=== PATIENT | female | born 1935 | race Caucasian/White ===

== ENCOUNTER 2019-07-20 09:27 | Day surgery (SDC) | payer MEDICARE, OTHER ==
[~2019-07-20] VITALS: Ht 165.1 cm; Wt 83.1 kg
[~2019-07-20 09:27] MED LIST: ALBU90OI INH; AMOX500 PO; ATEN100; ATEN25 PO; ATEN50 PO; ATENOLOL; ATOR20 PO; BENICAR HCT; BENZ100A PO; Benicar Hct 201 EACH PO; CALMAGZIN PO; CIPR500 PO; EYE OMEGA ADVA1 EACH; FISH OIL PO; Fish Oil300 MG; HYDACE5 PO; Hair, Skin & N1 EACH PO; LEVOTHYROXIN; LEVSOD100 PO; LEVSOD50 PO; LIPITOR; MELO7.5 PO; METF500C PO; METFORMIN; Multiple Vitam1 EAC1; OLME20-12. PO; PRESERVISION A1 EACH PO; PROM25 PO; Prilosec20 MG PO; RANI150 PO; RANITIDINE; RXPROM25 PO; TAMS.4ER PO; Vitamin D400 UNI2 PO; [UNRECOGNIZED DRUG - OTHER]
--- NOTE | 2019-07-20 10:09 | NUR ---
Surgical site prepped with 2% Chlorhexidine cloth wipe. History, Chart, Medications and Allergies reviewed before start of procedure. Lungs clear T/O to Auscultation. Patient confirms NPO status and agrees with scheduled surgery. Pre-Op teaching done. Pt verbalizes understanding. Patient reports completing Chlorhexadine shower X2 prior to admission to hospital.
--- NOTE | 2019-07-20 13:30 | NUR ---
pt arrived to unit via own bed, a/0 x 4, pleasant/cooperative, [employer] [place], no n/v, absent sensation/movement r/t spinal anesthesia. post op vs commenced and stable. pt provided with orientation to room/call light, bed in lowest position, bed rails up x 2, bed in lowest position.
--- NOTE | 2019-07-20 16:25 | NUR ---
ASSUMED CARE OF PT FROM MOIRA Leon RN PT DENIES PAIN AT THIS TIME. ABLE TO MOVE FEET AND SLIGHTLY LIFT R LEG. CALL LIGHT IN REACH.
--- NOTE | 2019-07-20 18:41 | NUR ---
SUMMARY NO ACUTE CHANGES SINCE ASSUMING CARE OF PT. WORKED W/THERAPY. NOW SITTING UP IN CHAIR, FINISHING DINNER. VOIDED. DENIES PAIN. ADMINISTERED MEDS PER ORDERS. CALL LIGHT IN REACH.
[2019-07-21 05:15] LABS: BASOPHILS ABSOLUTE AUTO 0.02 K/mm3 (0.00-0.23); BASOPHILS PERCENT AUTO 0 % (0-2); EOSINOPHILS PERCENT AUTO 0 % (0-6); Hematocrit 32.5 % (33.0-51.0); Hemoglobin 10.8 g/dL (11.5-16.0); IMMATURE GRAN ABSOLUTE AUTO 0.06 K/mm3 (0.00-0.10); IMMATURE GRAN PERCENT AUTO 0 % (0-1); LYMPHOCYTES ABSOLUTE AUTO 0.86 K/mm3 (0.84-5.20); LYMPHOCYTES PERCENT AUTO 6 % (21-46); MONOCYTES ABSOLUTE AUTO 0.66 K/mm3 (0.16-1.47); MONOCYTES PERCENT AUTO 5 % (4-13); Mean Corpuscular HGB 29.3 pg (26.0-34.0); Mean Corpuscular HGB Conc 33.2 g/dL (31.5-36.5); Mean Corpuscular Volume 88 fL (80-100); Mean Platelet Volume 12.3 fL (9.1-12.4); NEUTROPHILS ABSOLUTE AUTO 11.82 K/mm3 (1.96-9.15); NEUTROPHILS PERCENT AUTO 88 % (41-73); Platelet Count 192 K/mm3 (150-400); RDW Coefficient Variation 13.4 % (11.7-14.2); RDW Standard Deviation 43.6 fL (35.1-46.3); Red Blood Cell Count 3.68 M/mm3 (3.80-5.20); White Blood Cell Count 13.42 K/mm3 (4.00-11.30)
[2019-07-21 05:38] LABS: Anion Gap 8 mmol/L (6-16); Blood Urea Nitrogen 26 mg/dL (8-24); Bun/Creatinine Ratio 28.7 (12.0-20.0); CO2, Blood 25 mmol/L (21-32); Calcium, Blood 8.9 mg/dL (8.5-10.1); Chloride, Blood 107 mmol/L (98-108); Creatinine, Blood 0.91 mg/dL (0.40-1.00); Glomerular Filtration Rate >60 (60-); Glucose, Blood 114 mg/dL (70-99); Potassium, Blood 4.2 mmol/L (3.5-5.5); Sodium, Blood 140 mmol/L (136-145)
--- NOTE | 2019-07-21 07:14 | NUR ---
SUMMARY POD #1 DRSG REMAINS C/D/I. PAIN CONTROLLED WITH TYLENOL & TORADOL. PT IS TOLERATING PO INTAKE. VOIDING WNL. 1 ASSIST TO THE BATHROOM USING FWW/GAIT BELT. CALL LIGHT IN REACH.
[2019-07-21] MEDS ORDERED: Percocet 5-3251 EACH PO (08:47)
[2019-07-21] MEDS ORDERED: Aspirin EC81 MG PO (08:48)
--- NOTE | 2019-07-21 10:14 | NUR ---
THERAPY BEEN TO SEE PT.
--- NOTE | 2019-07-21 12:16 | NUR ---
DISCHARGE: PT/CAREGIVER REPORTS UNDERSTANDING OF DISCHARGE INSTRUCTIONS. PT/CAREGIVER REPORTS HAVING APPR EQUIP AT HOME,PAIN MEDS THEY WERE GIVEN SCRIPTS EARLIER TODAY. REPORTS UNDERSTANDING OF ICE MACHINE. PT SENT WITH ICE MACHINE, DRESSING SUPPLIES. PT CLEARED BY THERAPY TO GO HOME. PT EATING AND DRINKING AND VOIDING WELL.
--- NOTE | 2019-07-22 13:23 | NUR ---
07/22/19 1323 Mariya Moncada VERIFICATIONS: EDIT CHART.
== END 2019-07-21 12:19 | disposition home or self-care (01) ==
LOC: ORSCMMR 09:27 → ORD 10:45 → SURS 13:15 → ORSCMMR 07-21 12:19 → SURS 07-21 12:19 → ORD 07-27 07:30
PROVIDERS: Orthopaedic Surgery
PROC: 0SRD0JA Replacement of Left Knee Joint with Synthetic Substitute, Uncemented, Open Approach (ICD-10-PCS; principal; 2019-07-20 10:45)
DX: M17.12 Unilateral primary osteoarthritis, left knee (principal); Z01.818 Encounter for other preprocedural examination; I10 Essential (primary) hypertension; E11.9 Type 2 diabetes mellitus without complications; Z79.899 Other long term (current) drug therapy
CPT/HCPCS: 36415; 73560-LT; 80048; 82947; 85025; 86850; 86900; 86901; 88300; 97110; 97116; 97161; 97530; C1776; J0171; J0690; J0735; J1100; J1885; J2250; J2405; J2704; J2795; J7120

== ENCOUNTER 2020-09-20 04:05 | Emergency (ER) | payer MEDICARE, OTHER ==
[~2020-09-20] VITALS: Ht 165.1 cm; Wt 81.7 kg
[~2020-09-20 04:05] MED LIST changes: +Aspirin EC81 MG PO; +CALCIUM CITRATE PO; +GLUCOSAMINE PO; +LEVSOD75 PO; +MAGNESIUM PO; +METF500 PO; +METO25ER PO; +MSM PO; +Percocet 5-3251 EACH PO; +TURMERIC PO; +VITAMIN D310 MC4 PO; +Vitamin C100 M1 PO
[2020-09-20] MEDS ORDERED: Percocet 5-3251 EACH PO (05:24)
[2020-09-25] MEDS ORDERED: SYNTHROID75 MCG PO (11:02)
== END 2020-09-20 06:43 | disposition home or self-care (01) ==
LOC: ER 04:05
DX: S52.502A Unspecified fracture of the lower end of left radius, initial encounter for closed fracture (principal); S52.602A Unspecified fracture of lower end of left ulna, initial encounter for closed fracture; T80.89XA Other complications following infusion, transfusion and therapeutic injection, initial encounter; K21.9 Gastro-esophageal reflux disease without esophagitis; E78.5 Hyperlipidemia, unspecified; I10 Essential (primary) hypertension; E11.9 Type 2 diabetes mellitus without complications; E03.9 Hypothyroidism, unspecified; Z79.899 Other long term (current) drug therapy; Z88.6 Allergy status to analgesic agent; Z79.84 Long term (current) use of oral hypoglycemic drugs; W01.0XXA Fall on same level from slipping, tripping and stumbling without subsequent striking against object, initial encounter
CPT/HCPCS: 25605; 73100; 73110; 96361-59; 96374-59; 96376-59; 99152; 99284-25; A9270; J2704; J3010; J7030

== ENCOUNTER 2020-09-25 11:16 | Day surgery (SDC) | payer MEDICARE, OTHER ==
[~2020-09-25] VITALS: Ht 165.1 cm; Wt 82.7 kg
[~2020-09-25 11:16] MED LIST changes: +SYNTHROID75 MCG PO
--- NOTE | 2020-09-25 11:53 | NUR ---
PT ADMITTED TO [facility]. AGREES WITH PLANNED SURGERY. LUNG SOUNDS CLEAR. LEFT ARM IN [place] WRAP, ELEVATED ON PILLOW WHEN IN BED.
--- NOTE | 2020-09-25 12:08 | NUR ---
REPORT TO BARBARA GALLEGOS RN.
--- NOTE | 2020-09-25 14:32 | NUR ---
1415 PT REPORT FROM BYRON CASE RN. LEFT UPPER EXTREMITY WITH CAP REFILL LESS THAN 3 SECONDS, PINK AND STULL HEWER SLING WITH ICE THERAPY. PROVIDED FOOD AND FLUID AND WARMTH.
--- NOTE | 2020-09-25 15:40 | NUR ---
1520 PT HELPED TO THE BATHROOM WITH MINIMAL ASSIST. Discharge instructions reviewed with patient. Patient verbalizes understanding. Copy given to patient to take home. Dressing to procedure site clean, dry, intact with no visible drainage, swelling, erythema or bruising noted. Patient States Post-Procedure ride home has been arranged. Discharged via wheelchair to private car for ride home.PT CIRCULATION TO E REMAINS INTACT. ALL BELONINGS RETURNED TO PATIENT. PT RECEIVED ONE PAIN PILL AND [id number] PO INTAKE.
== END 2020-09-25 12:00 | disposition home or self-care (01) ==
LOC: ORSCMMR 11:16
PROVIDERS: Orthopaedic Surgery
PROC: 0PSJ04Z Reposition Left Radius with Internal Fixation Device, Open Approach (ICD-10-PCS; principal; 2020-09-25 12:00)
DX: S52.572A Other intraarticular fracture of lower end of left radius, initial encounter for closed fracture (principal); S52.602A Unspecified fracture of lower end of left ulna, initial encounter for closed fracture; I10 Essential (primary) hypertension; E03.9 Hypothyroidism, unspecified; E11.9 Type 2 diabetes mellitus without complications; K21.9 Gastro-esophageal reflux disease without esophagitis; Z79.84 Long term (current) use of oral hypoglycemic drugs; Z79.899 Other long term (current) drug therapy
CPT/HCPCS: 82947; C1713; J0690; J1100; J1885; J2250; J2405; J2704; J3010; J7120

== ENCOUNTER 2020-09-27 02:12 | Emergency (ER) | payer MEDICARE, OTHER ==
[~2020-09-27] VITALS: Ht 165.1 cm; Wt 79.4 kg
[2020-09-27 02:40] LABS: BASOPHILS ABSOLUTE AUTO 0.04 K/mm3 (0.00-0.23); BASOPHILS PERCENT AUTO 1 % (0-2); EOSINOPHILS ABSOLUTE AUTO 0.01 K/mm3 (0.00-0.68); EOSINOPHILS PERCENT AUTO 0 % (0-6); Hematocrit 36.8 % (33.0-51.0); Hemoglobin 12.3 g/dL (11.5-16.0); IMMATURE GRAN ABSOLUTE AUTO 0.02 K/mm3 (0.00-0.10); IMMATURE GRAN PERCENT AUTO 0 % (0-1); LYMPHOCYTES ABSOLUTE AUTO 2.21 K/mm3 (0.84-5.20); LYMPHOCYTES PERCENT AUTO 25 % (21-46); MONOCYTES ABSOLUTE AUTO 0.63 K/mm3 (0.16-1.47); MONOCYTES PERCENT AUTO 7 % (4-13); Mean Corpuscular HGB 29.2 pg (26.0-34.0); Mean Corpuscular HGB Conc 33.4 g/dL (31.5-36.5); Mean Corpuscular Volume 87 fL (80-100); Mean Platelet Volume 12.1 fL (9.1-12.4); NEUTROPHILS ABSOLUTE AUTO 5.81 K/mm3 (1.96-9.15); NEUTROPHILS PERCENT AUTO 67 % (41-73); Platelet Count 249 K/mm3 (150-400); RDW Coefficient Variation 13.7 % (11.7-14.2); Red Blood Cell Count 4.21 M/mm3 (3.80-5.20); White Blood Cell Count 8.72 K/mm3 (4.00-11.30)
[2020-09-27 02:50] LABS: Source, Urine Clean Catch
[2020-09-27 02:53] LABS: Bilirubin, Urine Neg (Neg); Blood, Urine Neg (Neg); Glucose Qualitative, Urine Neg (Neg); Ketones, Urine Neg (Neg); Leukocyte Esterase, Urine 2+ (Neg); Nitrite, Urine Neg (Neg); Protein, Urine Neg (Neg); Specific Gravity, Urine 1.005 (1.003-1.022); Urobilinogen, Urine NORM (Normal)
[2020-09-27 02:54] LABS: Alanine Aminotransfer (ALT/SGP 26 U/L (12-78); Albumin, Blood 3.2 g/dL (3.4-5.0); Albumin/Globulin Ratio 0.9 (0.8-1.8); Alk Phos 81 U/L (50-136); Anion Gap 7 mmol/L (6-16); Aspartate Aminotrans (AST/SGOT 20 U/L (12-37); Bilirubin, Total 0.5 mg/dL (0.1-1.0); Blood Urea Nitrogen 21 mg/dL (8-24); Bun/Creatinine Ratio 24.6 (12.0-20.0); CO2, Blood 29 mmol/L (21-32); Calcium, Blood 9.8 mg/dL (8.5-10.1); Chloride, Blood 103 mmol/L (98-108); Creatinine, Blood 0.85 mg/dL (0.40-1.00); Globulin, Blood 3.7 g/dL (2.2-4.0); Glomerular Filtration Rate >60 (60-); Glucose, Blood 91 mg/dL (70-99); Potassium, Blood 3.8 mmol/L (3.5-5.5); Sodium, Blood 139 mmol/L (136-145); Total Protein, Blood 6.9 g/dL (6.4-8.2)
[2020-09-27 02:59] LABS: Appearance, Urine Clear (Clear); Color, Urine Yellow (P-Yellow)
[2020-09-27 03:02] LABS: Squamous Epithelial Cells Few /hpf (Few); White Blood Cells, Urine 0-2 /hpf (0-5)
[2020-09-27 03:03] LABS: Bacteria Few /hpf
[2020-09-27] MEDS ORDERED: Flomax0.4 MG PO (03:35)
== END 2020-09-27 04:24 | disposition home or self-care (01) ==
LOC: ER 02:12
PROVIDERS: Emergency Medicine
DX: N20.2 Calculus of kidney with calculus of ureter (principal); K21.9 Gastro-esophageal reflux disease without esophagitis; E78.5 Hyperlipidemia, unspecified; I10 Essential (primary) hypertension; E11.9 Type 2 diabetes mellitus without complications; E03.9 Hypothyroidism, unspecified; Z79.899 Other long term (current) drug therapy; Z79.84 Long term (current) use of oral hypoglycemic drugs; Z88.6 Allergy status to analgesic agent
CPT/HCPCS: 36415; 74176; 80053; 81001; 85025; 87086; 96361; 96374; 96375; 99284-25; J1170; J1885; J2405; J7030

== ENCOUNTER 2020-11-14 09:12 | Emergency (ER) | payer MEDICARE, OTHER ==
[~2020-11-14] VITALS: Ht 165.1 cm; Wt 81.7 kg
[~2020-11-14 09:12] MED LIST changes: +Flomax0.4 MG PO
[2020-11-14 10:02] LABS: BASOPHILS ABSOLUTE AUTO 0.04 K/mm3 (0.00-0.23); BASOPHILS PERCENT AUTO 1 % (0-2); EOSINOPHILS PERCENT AUTO 0 % (0-6); Hematocrit 39.8 % (33.0-51.0); Hemoglobin 13.2 g/dL (11.5-16.0); IMMATURE GRAN ABSOLUTE AUTO 0.01 K/mm3 (0.00-0.10); IMMATURE GRAN PERCENT AUTO 0 % (0-1); LYMPHOCYTES ABSOLUTE AUTO 1.28 K/mm3 (0.84-5.20); LYMPHOCYTES PERCENT AUTO 25 % (21-46); MONOCYTES ABSOLUTE AUTO 0.45 K/mm3 (0.16-1.47); MONOCYTES PERCENT AUTO 9 % (4-13); Mean Corpuscular HGB 29.2 pg (26.0-34.0); Mean Corpuscular HGB Conc 33.2 g/dL (31.5-36.5); Mean Corpuscular Volume 88 fL (80-100); Mean Platelet Volume 12.7 fL (9.1-12.4); NEUTROPHILS ABSOLUTE AUTO 3.27 K/mm3 (1.96-9.15); NEUTROPHILS PERCENT AUTO 65 % (41-73); Platelet Count 205 K/mm3 (150-400); RDW Coefficient Variation 14.5 % (11.7-14.2); Red Blood Cell Count 4.52 M/mm3 (3.80-5.20); White Blood Cell Count 5.05 K/mm3 (4.00-11.30)
[2020-11-14 10:29] LABS: Free Thyroxine 1.83 ng/dL (0.70-1.60); Magnesium, Blood 1.7 mg/dL (1.6-2.4)
[2020-11-14 10:30] LABS: Alanine Aminotransfer (ALT/SGP 17 U/L (12-78); Albumin, Blood 3.2 g/dL (3.4-5.0); Albumin/Globulin Ratio 0.9 (0.8-1.8); Alk Phos 78 U/L (50-136); Anion Gap 9 mmol/L (6-16); Aspartate Aminotrans (AST/SGOT 17 U/L (12-37); Bilirubin, Total 0.6 mg/dL (0.1-1.0); Blood Urea Nitrogen 20 mg/dL (8-24); Bun/Creatinine Ratio 23.8 (12.0-20.0); CO2, Blood 24 mmol/L (21-32); Calcium, Blood 9.9 mg/dL (8.5-10.1); Chloride, Blood 107 mmol/L (98-108); Creatinine, Blood 0.84 mg/dL (0.40-1.00); Globulin, Blood 3.4 g/dL (2.2-4.0); Glomerular Filtration Rate >60 (60-); Glucose, Blood 107 mg/dL (70-99); Potassium, Blood 3.8 mmol/L (3.5-5.5); Sodium, Blood 140 mmol/L (136-145); Total Protein, Blood 6.6 g/dL (6.4-8.2)
[2020-11-14] MEDS ORDERED: Toprol Xl25 MG PO (10:34)
[2020-11-14] MEDS ORDERED: MULTIPLE VITAM1 EACH (10:35)
[2020-11-14] MEDS ORDERED: MAGNESIUM (10:36)
[2020-11-14] MEDS ORDERED: CHOLECALCIFEROL (10:36)
[2020-11-14] MEDS ORDERED: [UNRECOGNIZED DRUG - CODE] (10:36)
[2020-11-14] MEDS ORDERED: CALCIUM (10:36)
[2020-11-14] MEDS ORDERED: ZINC (10:36)
[2020-11-14 11:22] LABS: Source, Urine Clean Catch
[2020-11-14 11:35] LABS: Appearance, Urine Clear (Clear); Bilirubin, Urine Neg (Neg); Blood, Urine Neg (Neg); Color, Urine Yellow (P-Yellow); Glucose Qualitative, Urine Neg (Neg); Ketones, Urine 1+ (Neg); Leukocyte Esterase, Urine 1+ (Neg); Nitrite, Urine Neg (Neg); Protein, Urine Neg (Neg); Specific Gravity, Urine 1.005 (1.003-1.022); Urobilinogen, Urine NORM (Normal)
[2020-11-14 11:58] LABS: Bacteria Few /hpf; Red Blood Cells, Urine 0-2 /hpf (0-2); Squamous Epithelial Cells Few /hpf (Few)
== END 2020-11-14 11:47 | disposition home or self-care (01) ==
LOC: ER 09:12
PROVIDERS: Emergency Medicine
DX: I48.91 Unspecified atrial fibrillation (principal); F41.9 Anxiety disorder, unspecified; I10 Essential (primary) hypertension; E78.00 Pure hypercholesterolemia, unspecified; E11.9 Type 2 diabetes mellitus without complications; K21.9 Gastro-esophageal reflux disease without esophagitis; E03.9 Hypothyroidism, unspecified; Z88.6 Allergy status to analgesic agent; Z79.84 Long term (current) use of oral hypoglycemic drugs; Z79.899 Other long term (current) drug therapy
CPT/HCPCS: 36415; 71046; 80053; 81001; 83735; 84439; 84443; 85025; 87086; 93005; 93010; 96374; 99285-25; J2060

== ENCOUNTER → 2022-12-25 | Outpatient (CLI) | payer MEDICARE, OTHER ==
[~2022-12-25] MED LIST changes: +CALCIUM; +CHOLECALCIFEROL; +MAGNESIUM; +MULTIPLE VITAM1 EACH; +Toprol Xl25 MG PO; +ZINC; +[UNRECOGNIZED DRUG - CODE]
== END | disposition home or self-care (01) ==
LOC: LAB 10:44 → LAB SHORT 10:44
DX: L90.5 Scar conditions and fibrosis of skin (principal)
CPT/HCPCS: 88305

== ENCOUNTER → 2024-01-09 | Outpatient (CLI) | payer MEDICARE, OTHER ==
[2024-01-09 16:15] LABS: BASOPHILS ABSOLUTE AUTO 0.05 K/mm3 (0.00-0.23); BASOPHILS PERCENT AUTO 1 % (0-2); EOSINOPHILS PERCENT AUTO 0 % (0-6); Hematocrit 41.5 % (33.0-51.0); Hemoglobin 14.2 g/dL (11.5-16.0); IMMATURE GRAN ABSOLUTE AUTO 0.01 K/mm3 (0.00-0.10); IMMATURE GRAN PERCENT AUTO 0 % (0-1); LYMPHOCYTES ABSOLUTE AUTO 1.03 K/mm3 (0.84-5.20); LYMPHOCYTES PERCENT AUTO 18 % (21-46); MONOCYTES ABSOLUTE AUTO 0.48 K/mm3 (0.16-1.47); MONOCYTES PERCENT AUTO 8 % (4-13); Mean Corpuscular HGB 28.9 pg (26.0-34.0); Mean Corpuscular HGB Conc 34.2 g/dL (31.5-36.5); Mean Corpuscular Volume 85 fL (80-100); Mean Platelet Volume 12.1 fL (9.1-12.4); NEUTROPHILS ABSOLUTE AUTO 4.29 K/mm3 (1.96-9.15); NEUTROPHILS PERCENT AUTO 73 % (41-73); Platelet Count 222 K/mm3 (150-400); RDW Standard Deviation 43.4 fL (35.1-46.3); Red Blood Cell Count 4.91 M/mm3 (3.80-5.20); White Blood Cell Count 5.86 K/mm3 (4.00-11.30)
[2024-01-11 03:42] LABS: A/G RATIO 1.7 (1.2-2.2); BILIRUBIN, TOTAL 0.3 mg/dL (0.0-1.2); CREATININE, SERUM 0.78 mg/dL (0.57-1.00); GLOBULIN, TOTAL 2.3 g/dL (1.5-4.5); POTASSIUM, SERUM 4.1 mmol/L (3.5-5.2); PROTEIN, TOTAL, SERUM 6.3 g/dL (6.0-8.5)
== END | disposition home or self-care (01) ==
LOC: LAB SHORT 14:15 → LAB 14:15
PROVIDERS: Nurse Practitioner Family
DX: I10 Essential (primary) hypertension (principal); E03.9 Hypothyroidism, unspecified
CPT/HCPCS: 80053; 84443; 85025

== ENCOUNTER 2024-03-26 15:24 | Emergency (ER) | payer MEDICARE, OTHER ==
[~2024-03-26] VITALS: Ht 165.1 cm; Wt 81.7 kg
[2024-03-26 15:56] LABS: BASOPHILS ABSOLUTE AUTO 0.04 K/mm3 (0.00-0.23); BASOPHILS PERCENT AUTO 1 % (0-2); EOSINOPHILS PERCENT AUTO 0 % (0-6); Hematocrit 41.1 % (33.0-51.0); IMMATURE GRAN ABSOLUTE AUTO 0.01 K/mm3 (0.00-0.10); IMMATURE GRAN PERCENT AUTO 0 % (0-1); LYMPHOCYTES ABSOLUTE AUTO 1.35 K/mm3 (0.84-5.20); LYMPHOCYTES PERCENT AUTO 22 % (21-46); MONOCYTES ABSOLUTE AUTO 0.49 K/mm3 (0.16-1.47); MONOCYTES PERCENT AUTO 8 % (4-13); Mean Corpuscular HGB 29.6 pg (26.0-34.0); Mean Corpuscular HGB Conc 34.1 g/dL (31.5-36.5); Mean Corpuscular Volume 87 fL (80-100); Mean Platelet Volume 12.1 fL (9.1-12.4); NEUTROPHILS ABSOLUTE AUTO 4.33 K/mm3 (1.96-9.15); NEUTROPHILS PERCENT AUTO 70 % (41-73); Platelet Count 185 K/mm3 (150-400); RDW Coefficient Variation 14.2 % (11.7-14.2); RDW Standard Deviation 45.4 fL (35.1-46.3); Red Blood Cell Count 4.73 M/mm3 (3.80-5.20); White Blood Cell Count 6.22 K/mm3 (4.00-11.30)
[2024-03-26 16:24] LABS: Albumin, Blood 3.2 g/dL (3.4-5.0); Albumin/Globulin Ratio 0.9 (0.8-1.8); Bilirubin, Total 0.4 mg/dL (0.1-1.0); Bun/Creatinine Ratio 19.8 (12.0-20.0); Calcium, Blood 9.9 mg/dL (8.5-10.1); Creatinine, Blood 0.76 mg/dL (0.40-1.00); Globulin, Blood 3.5 g/dL (2.2-4.0); Potassium, Blood 3.8 mmol/L (3.5-5.5); Total Protein, Blood 6.7 g/dL (6.4-8.2)
[2024-03-26 17:48] LABS: Source, Urine Voided
[2024-03-26 17:51] LABS: Appearance, Urine Clear (Clear); Bilirubin, Urine Neg (Neg); Blood, Urine 1+ (Neg); Color, Urine Yellow (P-Yellow); Glucose Qualitative, Urine Neg (Neg); Ketones, Urine Neg (Neg); Leukocyte Esterase, Urine 2+ (Neg); Nitrite, Urine Neg (Neg); Protein, Urine Neg (Neg); Urobilinogen, Urine NORM (Normal)
[2024-03-26 17:58] LABS: Bacteria Few /hpf; Squamous Epithelial Cells Few /hpf (Few)
[2024-03-26] MEDS ORDERED: CEPH500 PO (18:51)
[2024-03-26] MEDS ORDERED: Voltaren100 GM TOP (18:51)
[2024-03-26 18:55] VITALS: BP 169/99
== END 2024-03-26 19:24 | disposition home or self-care (01) ==
LOC: ER 15:24
PROVIDERS: Emergency Medicine
DX: R41.82 Altered mental status, unspecified (principal); Z88.8 Allergy status to other drugs, medicaments and biological substances; Z79.899 Other long term (current) drug therapy; Z79.84 Long term (current) use of oral hypoglycemic drugs; I10 Essential (primary) hypertension; E78.00 Pure hypercholesterolemia, unspecified; E11.9 Type 2 diabetes mellitus without complications; K21.9 Gastro-esophageal reflux disease without esophagitis; E03.9 Hypothyroidism, unspecified; M19.90 Unspecified osteoarthritis, unspecified site
CPT/HCPCS: 70450; 72170; 80053; 81001; 85025; 93005; 93010; 99284-25

== ENCOUNTER → 2024-05-21 | Outpatient (CLI) | payer MEDICARE, OTHER ==
[~2024-05-21] MED LIST changes: +CEPH500 PO; +Voltaren100 GM TOP
== END ==
LOC: LAB 14:57 → LAB SHORT 14:57
DX: E03.9 Hypothyroidism, unspecified (principal)
CPT/HCPCS: 84443